=== PATIENT | female | born 1985 | race Caucasian/White ===

== ENCOUNTER 2017-01-23 17:49 | Emergency (ER) | payer BC ==
[2017-01-23 18:42] VITALS: BP 122/69
--- NOTE | 2017-01-23 19:11 | UC ---
Skin Complaint HPI - HPI Summary HPI Summary: Recurrent rash. Diagnosed with poison Siomara and treated with prednisone. Finished it 10 days ago and rash has recurred. - History of Current Complaint Chief Complaint: UCSkin Time Seen by Provider: 01/23/17 19:03 Stated Complaint: RASH ALL OVER Hx Obtained From: Patient Hx Last Menstrual Period: 12/27/16 ?: No Onset/Duration: Sudden Onset, Lasting Weeks - 3, Worse Since - in the last few days. Current Severity: Moderate Location: Discrete - both arms, legs and lower abdomen Aggravating: Nothing Associated Signs & Symptoms: Positive: Rash. Negative: Hoarseness, Throat Tightening, Tenderness, Red Streaks Related History: Possible Reaction to: Environmental Exposure - Poison Siomara Similar Episode/Dx as: Poison Siomara - Allergy/Home Medications Allergies/Adverse Reactions: Allergies Allergy/AdvReac Type Severity Reaction Status Date / Time Sulfa Antibiotics Allergy Unknown Verified 01/23/17 18:42 Reaction Details Home Medications: Home Medications Norethindrone Acet & Eth Estra [Microgestin 05/29 1-20 mg-Mcg] 1 tab PO DAILY [History Confirmed 01/23/17] Review of Systems Skin: Rash Is Patient Immunocompromised?: No All Other Systems Reviewed And Are Negative: Yes PMH/Surg Hx/FS Hx/Imm Hx Previously Healthy: Yes - Surgical History Surgical History: Yes Surgery Procedure, Year, and Place: Uterine surgery, Endometerosis - Family History Known Family History: Negative: Seizure Disorder - Social History Occupation: Employed Part-time Lives: With Family Alcohol Use: Occasionally Substance Use Type: None Smoking Status (MU): Never Smoked Tobacco Physical Exam Triage Information Reviewed: Yes Appearance: Well-Appearing, No Pain Distress, Well-Nourished Vital Signs: Initial Vital Signs Temp 98.2 F 01/23/17 18:37 Pulse 61 01/23/17 18:37 Resp 16 01/23/17 18:37 BP 122/69 01/23/17 18:37 Pulse Ox 100 01/23/17 18:37 Vital Signs Reviewed: Yes Eyes: Positive: Conjunctiva Clear Neck exam: Normal Respiratory Exam: Normal Cardiovascular Exam: Normal Musculoskeletal Exam: Normal Neurological Exam: Normal Neurological: Positive: Fatigued Skin: Positive: rashes - red papular rash with kebnerization on the legs, arms, lower abdomen. Course/Dx - Differential Diagnoses - Skin Complaint Differential Diagnoses: Abscess, Contact Dermatitis, Impetigo, Poison Siomara - Diagnoses Provider Diagnoses: Poison Siomara on legs, arms, abdomen Discharge - Discharge Plan Condition: Stable Disposition: HOME Prescriptions: Betamethasone Dipropionate Aug [Augmented Betamethasone D] 0.05 % .ROUTE BID # 45 oint predniSONE TAB* [Deltasone TAB*] 20 mg PO DAILY #18 tab Patient Education Materials: Poison Siomara (ED), Prednisone (By mouth), Betamethasone Dipropionate, Augmented (On the skin)
[2017-01-23] MEDS ORDERED: predniSONE TAB* 20 MG PO ONE (19:17)
== END 2017-01-23 19:29 | disposition home or self-care (01) ==
LOC: UCCORT 17:49
DX: L23.7 Allergic contact dermatitis due to plants, except food (principal); Z88.2 Allergy status to sulfonamides
CPT/HCPCS: 99202; G0463; J7512

== ENCOUNTER 2017-09-20 14:31 | Emergency (ER) | payer BC ==
[2017-09-20 15:31] VITALS: BP 115/72
[2017-09-20] MEDS ORDERED: Ibuprofen TAB* 400 MG PO ONE (15:35)
--- NOTE | 2017-09-20 15:50 | UC ---
Lower Extremity/Ankle HPI - HPI Summary HPI Summary: pt c/o right ankle pain, swelling and bruising after "rolling ankle" inward 2 days ago. - History of Current Complaint Hx Obtained From: Patient Hx Last Menstrual Period: pt states on OBC continuously, no menses ?: No Onset/Duration: Sudden Onset, Lasting Days, Still Present Severity Initially: Moderate Severity Currently: Mild Pain Intensity: 4 Aggravating Factor(s): Standing, Ambulation Alleviating Factor(s): Rest, Elevation Able to Bear Weight: Yes - Risk Factors Gout Risk Factors: Obesity DVT Risk Factors: Oral Contraceptives <Azalea Zuniga NP - Last Filed: 09/20/17 16:34> <Reina Weston - Last Filed: 09/20/17 16:43> - History of Current Complaint Chief Complaint: UCLowerExtremity Stated Complaint: RT ANKLE COMP Time Seen by Provider: 09/20/17 15:25 - Allergies/Home Medications Allergies/Adverse Reactions: Allergies Allergy/AdvReac Type Severity Reaction Status Date / Time Sulfa (Sulfonamide Allergy Unknown Unknown Verified 09/20/17 15:33 Antibiotics) Reaction Details Home Medications: Home Medications Acyclovir* [Zovirax 200 MG CAP*] 200 mg PO PRN 09/20/17 [History] Norethindrone-E.estradiol-Iron [Junel Fe 24 1-20 mg-Mcg(24)] 1 tab PO DAILY [History Confirmed 09/20/17] PMH/Surg Hx/FS Hx/Imm Hx Previously Healthy: Yes - Surgical History Surgical History: Yes Surgery Procedure, Year, and Place: Uterine surgery, Endometerosis - Family History Known Family History: Positive: Cardiac Disease Negative: Seizure Disorder - Social History Occupation: Employed Full-time Lives: With Family Alcohol Use: Weekly Substance Use Type: None Smoking Status (MU): Never Smoked Tobacco Have You Smoked in the Last Year: No <Azalea Zuniga NP - Last Filed: 09/20/17 16:34> Review of Systems Constitutional: Negative Skin: Bruising Eyes: Negative ENT: Negative Respiratory: Negative Cardiovascular: Negative Gastrointestinal: Negative Genitourinary: Negative Motor: Decreased ROM Neurovascular: Negative Musculoskeletal: Arthralgia, Decreased ROM, Edema, Myalgia Neurological: Negative Psychological: Negative Is Patient Immunocompromised?: No All Other Systems Reviewed And Are Negative: Yes <Azalea Zuniga NP - Last Filed: 09/20/17 16:34> Physical Exam Triage Information Reviewed: Yes Appearance: Well-Appearing Vital Signs: Initial Vital Signs Temp 98.8 F 09/20/17 15:24 Pulse 71 09/20/17 15:24 Resp 14 09/20/17 15:24 BP 115/72 09/20/17 15:24 Pulse Ox 100 09/20/17 15:24 Eye Exam: Normal ENT: Positive: Hearing grossly normal Dental Exam: Normal Neck exam: Normal Respiratory: Positive: No respiratory distress Musculoskeletal Exam: Normal Neurological Exam: Normal Psychological Exam: Normal Skin: Positive: Other - bruising, right ankle <Azalea Zuniga NP - Last Filed: 09/20/17 16:34> Vital Signs: Initial Vital Signs Temp 98.8 F 09/20/17 15:24 Pulse 71 09/20/17 15:24 Resp 09/20/17 15:24 BP 115/72 09/20/17 15:24 Pulse Ox 100 09/20/17 15:24 <Reina Weston - Last Filed: 09/20/17 16:43> Diagnostics - Radiology No standard instances Radiology Interpretation Completed By: Radiologist - IMPRESSION: NEGATIVE EXAMINATION. <Azalea Zuniga NP - Last Filed: 09/20/17 16:34> Lower Extremity Course/Dx - Differential Dx/Diagnosis Differential Diagnosis/HQI/PQRI: Fracture (Closed), Sprain, Strain Provider Diagnoses: right ankle sprain <Azalea Zuniga NP - Last Filed: 09/20/17 16:34> Discharge - Sign-Out/Discharge Documenting (check all that apply): Discharge/Admit/Transfer - Billing Disposition and Condition Condition: STABLE Disposition: HOME <Azalea Zuniga NP - Last Filed: 09/20/17 16:34> - Billing Disposition and Condition Condition: STABLE Disposition: HOME <Reina Weston - Last Filed: 09/20/17 16:43> - Discharge Plan Condition: Stable Disposition: HOME Referrals: No Primary Care Phys,NOPCP [Primary Care Provider] - Attestation Statement User Type: Provider - I was available for consult. This patient was seen by the [facility]. The patient was not presented to, seen by, or examined by me. -Diane <Reina Weston - Last Filed: 09/20/17 16:43>
--- NOTE | 2017-09-20 16:17 | RAD ---
INDICATION: Ankle pain COMPARISON: None TECHNIQUE: AP, lateral, and oblique views were obtained. FINDINGS: The bony structures, joint spaces, and soft tissues are normal for age. IMPRESSION: NEGATIVE EXAMINATION.
== END 2017-09-20 16:53 | disposition home or self-care (01) ==
LOC: UCCORT 14:31
DX: S93.401A Sprain of unspecified ligament of right ankle, initial encounter (principal); X50.9XXA Other and unspecified overexertion or strenuous movements or postures, initial encounter; Y93.9 Activity, unspecified; Y92.9 Unspecified place or not applicable; Z88.2 Allergy status to sulfonamides
CPT/HCPCS: 99213; A9270-GY; G0463

== ENCOUNTER 2018-08-03 07:38 | Emergency (ER) | payer BC ==
--- OUTSIDE RECORDS SUMMARY | 2018-08-03 07:44 | XMS REPORT | Continuity of Care Document ---
:1985 External Reference #:[id number] Author Name CadenMorenita Care Team Providers Name Role Phone Maru Prado MD Primary Care Physician Unavailable Payers Date Identification Numbers Payment Provider Subscriber Effective: 2018 Policy Number: [id number] BS Fep Melissa Nunn Group Name: [id number] [address] PayID: [id number] OmarSHALINI pickett [id number] Advance Directives Description No Information Available Problems Description No Information Family History Description No Information Available Social History Type Date Description Comments Sex Unknown Allergies, Adverse Reactions, Alerts Date Description Reaction Status Severity Comments 07/13/2018 Sulfa Antibiotics Active report dehydration Medications Medication Date Status Form Strength Qnty SIG Indications Ordering Provider Vitamin B Active Tablets 1 by Unknown Complex 00 mouth every day Vitamin D3 Active Tablets Unknown Complete 05/29 Active Tablets 1-20mg-mcg 1 by Unknown 00 mouth every day Fluoxetine HCL Active Capsules 20mg 1 by Unknown 00 mouth every day Fluoxetine HCL Hx Capsules 20mg 1 by Unknown (PMDD) 00 - mouth 07/14/19 every 19 day Immunizations Description No Information Available Vital Signs Date Vital Result Comment 07/13/2018 11:39am Height 64 inches 5'4" Weight 196.50 lb Heart Rate 72 /min BP Systolic 101 mmHg BP Diastolic 71 mmHg Body Temperature 98.4 F O2 % BldC Oximetry 97 % BMI (Body Mass Index) 33.7 kg/m2 Results Description No Information Available Procedures Description No Information Available Encounters Description No Information Available Plan of Treatment 07/13/2018 - Eagle Rollins, [id number] [facility]oringReferral:[facility] ,Diag/[id number] [id number] Encounter for screening for lipoid [id number] Encounter for screening for diabetes mellitus
[2018-08-03 07:50] VITALS: BP 118/69
--- NOTE | 2018-08-03 08:20 | UC ---
Throat Pain/Nasal West HPI - HPI Summary HPI Summary: oNSET YESTERDAY OF SORE THROAT, PAIN WITH SWALLOWING, FEVER TMAX 101, CHILLS, PAZ AND RIGHT EAR PAIN. NO COUGH OR CONGESTION. - History of Current Complaint Chief Complaint: UCGeneralIllness Stated Complaint: SORE THROAT Time Seen by Provider: 08/03/18 07:55 Hx Obtained From: Patient Hx Last Menstrual Period: DOESN'T GET PERIOD - TAKES CONTINUOUS CONTROL Onset/Duration: Gradual Onset, Lasting Hours, Still Present Severity: Moderate Pain Intensity: 7 Pain Scale Used: 0-10 Numeric Cough: None Associated Signs & Symptoms: Positive: Fever - Allergies/Home Medications Allergies/Adverse Reactions: Allergies Allergy/AdvReac Type Severity Reaction Status Date / Time Sulfa (Sulfonamide Allergy Unknown Unknown Verified 08/03/18 07:50 Antibiotics) Reaction Details Home Medications: Home Medications Acetaminophen/Diphenhydramine [Tylenol Pm Ex-Strength Caplet] 1 dose PO BEDTIME PRN 08/03/18 [History Confirmed 08/03/18] FLUoxetine CAP* [Prozac CAP*] 20 mg PO DAILY 08/03/18 [History Confirmed ] PMH/Surg Hx/FS Hx/Imm Hx Previously Healthy: Yes - Surgical History Surgical History: Yes Surgery Procedure, Year, and Place: Uterine surgery, Endometriosis - Family History Known Family History: Positive: Cardiac Disease Negative: Seizure Disorder - Social History Alcohol Use: Occasionally Substance Use Type: None Smoking Status (MU): Former Smoker Have You Smoked in the Last Year: No When Did the Patient Quit Smoking/Using Tobacco: 10 YEARS AGO Review of Systems All Other Systems Reviewed And Are Negative: Yes Constitutional: Positive: Fever, Chills, Fatigue ENT: Positive: Sore Throat, Ear Ache. Negative: Nasal Discharge Respiratory: Positive: Negative Cardiovascular: Positive: Negative Gastrointestinal: Positive: Negative Neurological: Positive: Headache Physical Exam Triage Information Reviewed: Yes Appearance: Well-Appearing, No Pain Distress, Well-Nourished Vital Signs: Initial Vital Signs Temp 98.5 F 08/03/18 07:44 Pulse 93 08/03/18 07:44 Resp 16 08/03/18 07:44 BP 118/69 08/03/18 07:44 Pulse Ox 99 08/03/18 07:44 Laboratory Tests 08/03/18 07:58 Group A Strep Rapid Positive A Vital Signs Reviewed: Yes Eyes: Positive: Conjunctiva Clear ENT: Positive: Hearing grossly normal, Pharyngeal erythema, TMs normal - FLUID BEHIND BILATERAL TMs, Tonsillar swelling, Tonsillar exudate Neck: Positive: Supple, Nontender, No Lymphadenopathy Respiratory Exam: Normal Cardiovascular Exam: Normal Abdomen Description: Positive: Soft Musculoskeletal: Positive: No Edema Neurological: Positive: Alert Psychological: Positive: Age Appropriate Behavior Skin: Negative: Rashes Throat Pain/Nasal Course/Dx - Differential Dx/Diagnosis Provider Diagnosis: Strep pharyngitis Discharge - Sign-Out/Discharge Documenting (check all that apply): Patient Departure All imaging exams completed and their final reports reviewed: No Studies - Discharge Plan Condition: Stable Disposition: HOME Prescriptions: Amoxicillin PO (*) [Amoxicillin 500 MG CAP*] 500 mg PO Q12H #20 cap Patient Education Materials: Strep Throat (ED) Referrals: Eagle Rollins, [employer] [Primary Care Provider] - If Needed Additional Instructions: STREP POSITIVE. TAKE ANTIBIOTICS FOR THE FULL 10 DAYS. OTC CHLORASEPTIC OR CEPACOL LOZENGES AND/OR IBUPROFEN FOR SORE THROAT NEEDED ONCE SYMPTOMS RESOLVED - NEW TOOTHBRUSH DO NOT SHARE FOOD, DRINK, UTENSILS - Billing Disposition and Condition Condition: STABLE Disposition: Home
== END 2018-08-03 08:18 | disposition home or self-care (01) ==
LOC: UCEAST 07:38
DX: J02.0 Streptococcal pharyngitis (principal); H92.01 Otalgia, right ear; Z87.891 Personal history of nicotine dependence; Z88.2 Allergy status to sulfonamides
CPT/HCPCS: 87651; 99212; G0463

== ENCOUNTER 2018-09-05 11:14 | Emergency (ER) | payer BC ==
--- NOTE | 2018-09-05 12:03 | UC ---
Hand/Wrist HPI - HPI Summary HPI Summary: 33 yo female presents with right thumb pain. She tells me that for many years she has been sleeping with a wrist brace because she wakes up with right wrist/ hand pain and numbness. Was told at one time it was carpal tunnel and to improve her symptoms to use a wrist brace at night. The brace does help her. Last night, however, she did not use the wrist brace and this morning has pain in her right thumb. She is right handed. Pain is worse with gripping and twisting - such as opening jars or turning door knobs. She has not taken anything OTC for her discomfort. She does not have any numbness or tingling at this time. - History Of Current Complaint Stated Complaint: RIGHT WRIST INJURY Time Seen by Provider: 09/05/18 12:02 Hx Obtained From: Patient Hx Last Menstrual Period: DOESN'T GET PERIOD - TAKES CONTINUOUS CONTROL Onset/Duration: Sudden Onset Severity Initially: Moderate Severity Currently: Moderate Pain Scale Used: 0-10 Numeric - Allergies/Home Medications Allergies/Adverse Reactions: Allergies Allergy/AdvReac Type Severity Reaction Status Date / Time Sulfa (Sulfonamide Allergy Unknown Unknown Verified 09/05/18 12:14 Antibiotics) Reaction Details PMH/Surg Hx/FS Hx/Imm Hx Psychological History: Anxiety, Depression - Surgical History Surgical History: Yes Surgery Procedure, Year, and Place: Uterine surgery, Endometriosis - Family History Known Family History: Positive: Cardiac Disease Negative: Seizure Disorder - Social History Occupation: Employed Full-time Lives: With Family Alcohol Use: Occasionally Substance Use Type: None Smoking Status (MU): Former Smoker Have You Smoked in the Last Year: No When Did the Patient Quit Smoking/Using Tobacco: 10 YEARS AGO Review of Systems All Other Systems Reviewed And Are Negative: Yes Constitutional: Positive: Negative Skin: Positive: Negative Respiratory: Positive: Negative Cardiovascular: Positive: Negative Musculoskeletal: Positive: Other: - Right thumb pain Neurological: Positive: Negative Psychological: Positive: Negative Physical Exam - Summary Physical Exam Summary: GENERAL: NAD. WDWN. No pain distress. SKIN: No rashes, sores, lesions, or open wounds. CHEST: No accessory muscle use. Breathing comfortably and in no distress. CV: Pulses intact radial and ulnar. Cap refill <2seconds MSK: RIGHT THUMB: Mild TTP at extensor tendons. Positive tinel sign. Positive phalen test. Strength 5/5 including molasses and caramel operator strength. No edema or obvious bony deformities. No snuffbox tenderness. NEURO: Alert. Sensations intact hand and all fingers. PSYCH: Age appropriate behavior. Triage Information Reviewed: Yes Vital Signs: Vital Signs: Temp Pulse Resp BP Pulse Ox 98.6 F 63 16 109/62 100 09/05/18 12:16 09/05/18 12:16 09/05/18 12:16 09/05/18 12:16 09/05/18 12:16 Vital Signs Reviewed: Yes Hand/Wrist Course/Dx - Course Course Of Treatment: Suspect thumb strain/sprain with underlying carpal tunnel syndrome. She was placed in a thumb spica splint and will refer to Orthopedics for further evaluation. - Differential Dx/Diagnosis Provider Diagnosis: Thumb sprain, Carpal tunnel syndrome Discharge - Sign-Out/Discharge Documenting (check all that apply): Patient Departure All imaging exams completed and their final reports reviewed: No Studies - Discharge Plan Condition: Stable Disposition: HOME Patient Education Materials: Skier's Thumb (ED), Paresthesia (ED) Referrals: Eagle Rollins NP [Primary Care Provider] - Sourav Bullock MD [Medical Doctor] - As Soon As Possible Additional Instructions: If you develop a fever, shortness of breath, chest pain, new or worsening symptoms - please call your PCP or go to the ED immediately. 1) Use the thumb brace/splint as much as possible to reduce discomfort 2) Please call Orthopedics at the number below to schedule an appointment regarding your hand pain and numbness - Billing Disposition and Condition Condition: STABLE Disposition: Home - Attestation Statements Provider Attestation: I was available for consult. This patient was seen by the [facility]. The patient was not presented to, seen by, or examined by me. -Diane
[2018-09-05 12:21] VITALS: BP 109/62
== END 2018-09-05 12:27 | disposition home or self-care (01) ==
LOC: UCCORT 11:14
DX: S63.601A Unspecified sprain of right thumb, initial encounter (principal); G56.01 Carpal tunnel syndrome, right upper limb; Z87.891 Personal history of nicotine dependence; Z88.2 Allergy status to sulfonamides; X58.XXXA Exposure to other specified factors, initial encounter; Y92.9 Unspecified place or not applicable
CPT/HCPCS: 99212; G0463

== ENCOUNTER 2018-09-08 21:09 | Emergency (ER) | payer BC ==
[2018-09-08 21:26] VITALS: BP 119/67
--- NOTE | 2018-09-08 21:31 | UC ---
Lower Extremity/Ankle HPI - HPI Summary HPI Summary: Pt with left ankle pain s/p inversion injury last night. Pt states pain worse with weightbear. no paresthesia. + edema + applied ice. has taken motrin. No open wounds. No knee pain. No other injuries meds reviewed not - History of Current Complaint Chief Complaint: UCLowerExtremity Stated Complaint: LT ANKLE COMPLAINT Time Seen by Provider: 09/08/18 21:30 Hx Obtained From: Patient Hx Last Menstrual Period: BCP continuously no periods ?: No Onset/Duration: Sudden Onset, Lasting Days - 1 Pain Intensity: 2 - Allergies/Home Medications Allergies/Adverse Reactions: Allergies Allergy/AdvReac Type Severity Reaction Status Date / Time Sulfa (Sulfonamide Allergy Unknown Unknown Verified 09/08/18 21:21 Antibiotics) Reaction Details Home Medications: Home Medications Naproxen Sodium [Aleve] 220 mg PO ONCE PRN 09/08/18 [History Confirmed 09/08/18] PMH/Surg Hx/FS Hx/Imm Hx Previously Healthy: Yes - Surgical History Surgical History: Yes Surgery Procedure, Year, and Place: Uterine surgery, Endometriosis - Family History Known Family History: Positive: Cardiac Disease, Non-Contributory Negative: Seizure Disorder - Social History Occupation: Employed Full-time Alcohol Use: Occasionally Substance Use Type: None Smoking Status (MU): Former Smoker Have You Smoked in the Last Year: No When Did the Patient Quit Smoking/Using Tobacco: 10 YEARS AGO Review of Systems All Other Systems Reviewed And Are Negative: Yes Constitutional: Positive: Negative Skin: Positive: Negative Musculoskeletal: Positive: Other: - left ankle Physical Exam - Summary Physical Exam Summary: Vital Signs Reviewed: Yes A+Ox3, no distress Eyes: Conjunctiva Clear ENT: Hearing grossly normal neck: supple Respiratory: Positive: No respiratory distress, No accessory muscle use Cardiovascular: skin color reflect adequate perfusion 2+ DP, PT CBT <2 sec Musculoskeletal Exam: + SLE + flex/ext knee, ankle with pain lateral malleolus of left + TTP left malleolus, talus no achilles pain, no tarsal pain, mild prox lateral tibia pain Neurological: Positive: Alert, favoring left foot Psychological: Positive: Normal Response Skin: Positive: no rash, no ecchymosis, mild edema leteral malleolus, no open wounds, Triage Information Reviewed: Yes Vital Signs: Initial Vital Signs Temp 97.8 F 09/08/18 21:22 Pulse 62 09/08/18 21:22 Resp 16 09/08/18 21:22 BP 119/67 09/08/18 21:22 Pulse Ox 100 09/08/18 21:22 Diagnostics - Radiology No standard instances Radiology Interpretation Completed By: ED Physician - neg ankle, neg tib/fib Lower Extremity Course/Dx - Course Course Of Treatment: inversion injury to left ankle yesterday. pain with walking, standing. + edema lateral malleolus with TTP pt also with mild prox tib pain will image- aware wet read ice motrin/apap f/u with ortho/sports med crutches kina elevate pt in agreement with plan - Differential Dx/Diagnosis Provider Diagnosis: Left ankle sprain Discharge - Sign-Out/Discharge Documenting (check all that apply): Patient Departure All imaging exams completed and their final reports reviewed: No - Discharge Plan Condition: Stable Disposition: HOME Patient Education Materials: Ankle Sprain (ED) Referrals: Eagle Rollins NP [Primary Care Provider] - Sam Dao MD [Medical Doctor] - [facility] [Provider Group] Additional Instructions: -wear kina wrap for comfort and support -apply ice (20 min at a time) every 2-3 hours for the next 2 days -use crutches until you can walk normally without a limp -Elevate your leg - this will help with swelling and pain - Alternate ibuprofen (advil, Motrin) 600mg and tylenol every 3 hours for pain. Take with food. Do NOT take for more than 4-5 days -If you have persistent pain with walking, it is recommended you schedule a follow-up with the orthopedic provider or the sports medicine doctor As discussed, your radiograph was reviewed by the provider that treated you tonight. It will be read by a radiologist tomorrow morning. If there is a finding other than that discussed with you today, you will receive a call from a care provider. - Billing Disposition and Condition Condition: STABLE Disposition: Home
== END 2018-09-08 22:14 | disposition home or self-care (01) ==
LOC: UCCORT 21:09
DX: S93.402A Sprain of unspecified ligament of left ankle, initial encounter (principal); X50.1XXA Overexertion from prolonged static or awkward postures, initial encounter; Y93.9 Activity, unspecified; Y92.9 Unspecified place or not applicable; Z88.2 Allergy status to sulfonamides; Z87.891 Personal history of nicotine dependence
CPT/HCPCS: 99213; G0463

== ENCOUNTER 2018-09-19 07:19 | Emergency (ER) | payer BC ==
--- OUTSIDE RECORDS SUMMARY | 2018-09-19 07:26 | XMS REPORT | Continuity of Care Document ---
:1985 External Reference #:[id number] Author Name Dimas Nicholsnavi Care Team Providers Name Role Phone Maru Prado MD Primary Care Physician Unavailable Payers Date Identification Numbers Payment Provider Subscriber Effective: 2018 Policy Number: [id number] [facility] Group Name: [address] [address] PayID: [id number] SHALINI Nelson [id number] Advance Directives Description No Information Available Problems Description No Information Family History Date Family Member(s) Observation Comments General Diabetes Father Diabetes Mother Hypercholesterolemia Siblings 2 Social History Type Date Description Comments Sex Unknown Marital Status Lives With Occupation Marketing Production Manager ETOH Use Currently consumes 3-4 drinks/week alcohol Tobacco Use Start: Unknown End: Patient is a former 1 ppd from age [age] Unknown smoker Smoking Status Reviewed: 09/13/18 Patient is a former 1 ppd from age [age] smoker Exercise Type/Frequency Exercises regularly Allergies, Adverse Reactions, Alerts Active Allergies Reaction Severity Comments Date Sulfa Antibiotics report dehydration 07/13/2018 Medications Active Medications SIG Qnty Indications Ordering Provider Date Vitamin B Complex 1 by mouth every Unknown Tablets day Vitamin D3 Complete Unknown Tablets June05/29 1 by mouth every Unknown 1-20mg-mcg day Tablets Fluoxetine HCL 1 by mouth every Unknown 20mg day Capsules Acyclovir 1 by mouth five Unknown 200mg Capsules times a day History Medications Fluoxetine HCL (PMDD) 1 by mouth every day Unknown - 2018 20mg Capsules Immunizations Description No Information Available Vital Signs Date Vital Result Comment 09/13/2018 3:25pm Height 63 inches 5'3" Weight 190.00 lb Heart Rate 64 /min BP Systolic 120 mmHg BP Diastolic 82 mmHg Respiratory Rate 12 /min Pain Level 3 BMI (Body Mass Index) 33.7 kg/m2 07/13/2018 11:39am Height 64 inches 5'4" Weight 196.50 lb Heart Rate 72 /min BP Systolic 101 mmHg BP Diastolic 71 mmHg Body Temperature 98.4 F O2 % BldC Oximetry 97 % BMI (Body Mass Index) 33.7 kg/m2 Results Test Date Facility Test Result H/L Range Note Laboratory test 08/04/19 [facility] Rapid Strep POSITIVE Abnormal Negative 1 finding [address] [place] [address] [phone] Lipid Profile 07/16/19 [facility] Triglycerides 136 mg/dL 2 (Trig/Chol/HDL) [address] [place] [address] [phone] Cholesterol 161 mg/dL 3 HDL Cholesterol 55.8 mg/dL 4 LDL Cholesterol 78 mg/dL 5 Comp Metabolic Panel 07/15/2018 [facility] Sodium 137 mmol/L N 135-[address] [place] [address] [phone] Potassium 4.4 mmol/L N 3.5-5.0 Chloride 105 mmol/L N 101-111 Co2 Carbon Dioxide 25 mmol/L N 22-32 Anion Gap 7 mmol/L N 2-11 Glucose 96 mg/dL N 70-100 Blood Urea Nitrogen 11 mg/dL N 6-24 Creatinine 0.87 mg/dL N 0.51-0.95 BUN/Creatinine Ratio 12.6 N 8-20 Calcium 9.3 mg/dL N 8.6-10.3 Total Protein 6.5 g/dL N 6.4-8.9 Albumin 4.1 g/dL N 3.2-5.2 Globulin 2.4 g/dL N 2-4 Albumin/Globulin Ratio 1.7 N 1-3 Total Bilirubin 0.70 mg/dL N 0.2-1.0 Alkaline Phosphatase 44 U/L N 34-104 Alt 20 U/L N 7-52 Ast 21 U/L N 13-39 Egfr Non- 74.5 >60 Egfr 90.2 >60 6 Laboratory test 07/15/2018 [facility] TSH (Thyroid 1.12 mcIU/mL N 0.34-5.60 [address] Stim Horm) [place] [address] [phone] CBC Auto Diff 07/15/2018 [facility] White Blood 4.5 10^3/uL N 3.5-10.[address] [place] [address] [phone] Red Blood Count 4.11 10^6/uL N 4.00-5.40 Hemoglobin 13.2 g/dL N 12.0-16.0 Hematocrit 40 % N 35-47 Mean Corpuscular Volume 96 fL N 80-97 Mean Corpuscular Hemoglobin 32 pg High 27-31 Mean Corpuscular HGB Conc 34 g/dL N 31-36 Red Cell Distribution Width 12 % N 10.5-15 Platelet Count 279 10^3/uL N 150-450 Mean Platelet Volume 7.7 fL N 7.4-10.4 Abs Neutrophils 2.6 10^3/uL N 1.5-7.7 Abs Lymphocytes 1.2 10^3/uL N 1.0-4.8 Abs Monocytes 0.3 10^3/uL N 0-0.8 Abs Eosinophils 0.2 10^3/uL N 0-0.6 Abs Basophils 0 10^3/uL N 0-0.2 Abs Nucleated RBC 0 10^3/uL Granulocyte % 58.6 % Lymphocyte % 27.9 % Monocyte % 7.6 % Eosinophil % 5.3 % Basophil % 0.6 % Nucleated Red Blood Cells % 0 1 Business Solutions Analyst: [id number] Desirable: <150 Borderline High: 150-199 High: 200-499 Very High: >500 3 Desirable: <200 Borderline High: 200-239 High: >239 4 Low: <40 Desirable: 40-60 High: >60 5 Desirable: <100 Near Optimal: 100-129 Borderline High: 130-159 High: 160-189 Very High: >189 6 Because ethnic data is not always readily available, this report includes an eGFR for both -Americans and non- Americans. The National Kidney Disease Education Program (NKDEP) does not endorse the use of the MDRD equation for patients that are not between the ages of 18 and 70, are , have extremes of body size, muscle mass, or nutritional status, or are non- or non-. According to the National Kidney Foundation, irrespective of diagnosis, the stage of the disease is based on the level of kidney function: Stage Description GFR(mL/min/1.73 m(2)) 1 Kidney damage with normal or decreased GFR 90 2 Kidney damage with mild decrease in GFR 60-89 3 Moderate decrease in GFR 30-59 4 Severe decrease in GFR 15-29 5 Kidney failure <15 (or dialysis) 7 FASTING 10 HOUR Procedures Description No Information Available Encounters Type Date Location Provider Dx Diagnosis Office Visit 07/13/2018 11:00a [facility] Internal Medicine Eagle Rollins NP R06.83 Snoring R40.0 Somnolence Z13.220 Encounter for screening for lipoid disorders Z13.1 Encounter for screening for diabetes mellitus Plan of Treatment Future Appointment(s):09/21/2018 7:30 am - Tawny Abdullahi MD at [facility]09/13/2018 - Sourav Bullock MDG56.01 Carpal tunnel syndrome, right upper limbFollow up:Follow up: As needed
[2018-09-19 07:30] VITALS: BP 103/62
--- NOTE | 2018-09-19 07:56 | UC ---
Throat Pain/Nasal West HPI - HPI Summary HPI Summary: Pt presents to with sinus congestion x 2 days, non productive cough, and sore throat since yesterday. Patient's been eating popsicles water. Patient reports painful swallowing but no difficulty swallowing. Patient had a fever last night that she took Nyquil. No antipyretic today. Pt with strep approx 6 weeks ago. Medications reviewed not - History of Current Complaint Chief Complaint: UCGeneralIllness Stated Complaint: SORE THROAT FEVER CHILLS Time Seen by Provider: 09/19/18 07:56 Hx Obtained From: Patient Hx Last Menstrual Period: BCP continuously no periods ?: No Onset/Duration: Gradual Onset Severity: Moderate Pain Intensity: 8 Pain Scale Used: 0-10 Numeric Cough: Nonproductive Associated Signs & Symptoms: Positive: Sinus Discomfort, Nasal Discharge, Fever - Allergies/Home Medications Allergies/Adverse Reactions: Allergies Allergy/AdvReac Type Severity Reaction Status Date / Time Sulfa (Sulfonamide Allergy Unknown Unknown Verified 09/19/18 07:30 Antibiotics) Reaction Details PMH/Surg Hx/FS Hx/Imm Hx Previously Healthy: Yes - Surgical History Surgical History: Yes Surgery Procedure, Year, and Place: Uterine surgery, Endometriosis - Family History Known Family History: Positive: Cardiac Disease, Non-Contributory Negative: Seizure Disorder - Social History Occupation: Employed Full-time Lives: With Family Alcohol Use: Occasionally Substance Use Type: None Smoking Status (MU): Former Smoker Have You Smoked in the Last Year: No When Did the Patient Quit Smoking/Using Tobacco: 10 YEARS AGO Review of Systems All Other Systems Reviewed And Are Negative: Yes Constitutional: Positive: Fever Skin: Positive: Negative ENT: Positive: Sore Throat Is Patient Immunocompromised?: No Physical Exam - Summary Physical Exam Summary: Vital Signs Reviewed: Yes A+Ox3, no distress Eyes: Conjunctiva Clear, NORBERTO. EOM intact and full ENT: Hearing grossly normal TM x 2 clear, turbinates inflammed, + PND, mmoist, uvula midline, no exudate, + diffuse erythema oropharynx Neck: Positive: Supple, + submandibular LA Respiratory: Positive: No respiratory distress, No accessory muscle use + CTA throughout no w/r Cardiovascular: RRR nl s1, s2 no m/r CBT <2 sec abd soft + BS nt/nd no guarding, no distension Musculoskeletal Exam: MAXWELL x 4 without difficulty Strength Intact, ROM Intact Neurological: Positive: Alert, + sensation throughout Psychological: Positive: Normal Response To Family Skin: Positive: no rash, no ecchymosis Triage Information Reviewed: Yes Vital Signs: Initial Vital Signs Temp 99.0 F 09/19/18 07:25 Pulse 94 09/19/18 07:25 Resp 18 09/19/18 07:25 BP 103/62 09/19/18 07:25 Pulse Ox 98 09/19/18 07:25 Throat Pain/Nasal Course/Dx - Course Course Of Treatment: Pt with progressive sore throat, fever last night, sinus congestion VSS Pt with with erythema, no exudate uvula midline Strep positive Amox hydrate secretion precaution gargle/spit return precautions - Differential Dx/Diagnosis Provider Diagnosis: Strep pharyngitis Discharge - Sign-Out/Discharge Documenting (check all that apply): Patient Departure All imaging exams completed and their final reports reviewed: No Studies - Discharge Plan Condition: Stable Disposition: HOME Prescriptions: Amoxicillin PO (*) [Amoxicillin 500 MG CAP*] 500 mg PO Q12H #20 cap Patient Education Materials: Strep Throat (ED) Referrals: Eagle Rollins, ACCOUNT MANAGER EMPLOYEE [employer]EFITS [Primary Care Provider] - Additional Instructions: - Okay to alternate ibuprofen (Advil, Motrin) 600mg and Tylenol 1000mg every 3 hours for pain. Take with food. Do NOT take for more than 4-5 days - Okay to gargle and spit warm salt water every 4 hours as needed for pain - Stay well hydrated - frequent sips of cold fluids will be soothing to your throat (popsicles, jello, ice cream, ice water). Avoid excess caffeine until your symptoms have resolved. -Throat infections are spread by oral secretions - do not share eating or drinking utensils until you symptoms are resolved. Clean items that may get your secretions such as cell phones, ipads, computer mouse, television remotes. Once you have been on antibiotics for 2 days, start to feel better, change your toothbrush and your pillowcase. - humidify the air in the room where you sleep - boil water, run a hot steam shower, vaporizer, cups of water by heat register - Okay to take over the counter cough and decongestant medication - Contact your doctor to arrange a follow-up appointment as needed - Billing Disposition and Condition Condition: STABLE Disposition: Home
== END 2018-09-19 08:15 | disposition home or self-care (01) ==
LOC: UCEAST 07:19
DX: J02.0 Streptococcal pharyngitis (principal); Z88.2 Allergy status to sulfonamides; Z87.891 Personal history of nicotine dependence
CPT/HCPCS: 87651; 99212; G0463

== ENCOUNTER 2018-10-11 15:28 | Emergency (ER) | payer BC ==
--- OUTSIDE RECORDS SUMMARY | 2018-10-11 15:39 | XMS REPORT | Continuity of Care Document ---
:1985 External Reference #:[id number] Author Name FangToña holbrook Care Team Providers Name Role Phone Eagle Rollins NP Primary Care Physician Unavailable Payers Date Identification Numbers Payment Provider Subscriber Effective: 2018 Policy Number: [id number] [facility]unn Group Name: [address] [address] PayID: [id number] SHALINI Nelson [id number] Family History Date Family Member(s) Observation Comments General Diabetes General Pulmonary fibrosis Mother was recently diagnosed General Sleep Apnea Father Diabetes Mother Hypercholesterolemia Siblings 2 Social History Type Date Description Comments Sex Unknown Marital Status 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 ETOH Use Currently consumes 3-4 drinks/week alcohol Tobacco Use Start: Unknown End: Patient is a former 1 ppd from age Unknown smoker [age] Recreational Drug Use Never Used Drugs Smoking Status Reviewed: 09/21/18 Patient is a former 1 ppd from age smoker [age] Exercise Type/Frequency Exercises regularly Allergies, Adverse Reactions, Alerts Active Allergies Reaction Severity Comments Date Sulfa Antibiotics report dehydration 07/13/2018 Medications Active Medications SIG Qnty Indications Ordering Provider Date Vitamin B Complex 1 by mouth every Unknown Tablets day Vitamin D3 Complete Unknown Tablets Junel 05/29 1 by mouth every Unknown 1-20mg-mcg day Tablets Fluoxetine HCL 1 by mouth every Unknown 20mg day Capsules Acyclovir 1 by mouth five Unknown 200mg Capsules times a day History Medications Fluoxetine HCL (PMDD) 1 by mouth every day Unknown - 2018 20mg Capsules Vital Signs Date Vital Result Comment 09/21/2018 7:08am Height 63 inches 5'3" Weight 190.50 lb Heart Rate 80 /min BP Systolic Sitting 116 mmHg Lue regular cuff BP Diastolic Sitting 78 mmHg Lue regular cuff Respiratory Rate 12 /min O2 % BldC Oximetry 98 % BMI (Body Mass Index) 33.7 kg/m2 Neck Circumference in inches 14.25 09/13/2018 3:25pm Height 63 inches 5'3" Weight [...] Test Result H/L Range Note Laboratory test 09/20/19 [facility] Rapid Strep POSITIVE Abnormal Negative 1 finding 19 [place] [address] [phone] Laboratory test 08/04/19 [facility] Rapid Strep POSITIVE Abnormal Negative 2 finding [address] [place] [address] [phone] Lipid Profile 07/16/19 [facility] Triglycerides 136 mg/dL 3 (Trig/Chol/HDL) [address] [place] [address] [phone] Cholesterol 161 mg/dL 4 HDL Cholesterol 55.8 mg/dL 5 LDL Cholesterol 78 mg/dL 6 Comp Metabolic Panel 07/15/2018 [facility] Sodium 137 mmol/L N 135-145 [address] [place] [address] [phone] Potassium 4.4 mmol/L N 3.5-5.0 Chloride 105 [...] Egfr Non- 74.5 >60 Egfr 90.2 >60 7 Laboratory test 07/15/2018 [facility] TSH (Thyroid 1.12 mcIU/mL N 0.34-5.60 [address] Stim Horm) [place] [address] [phone] CBC Auto Diff 07/15/2018 [facility] White Blood 4.5 10^3/uL N 3.5-10.[address] [place] [address] [phone] Red Blood Count 4.11 10^6/uL N 4.00-5.40 [...] Nucleated Red Blood Cells % 0 1 Water Pump Installer: [id number] 2 Water Pump Installer: [id number] 3 Desirable: <150 Borderline High: 150-199 High: 200-499 Very High: >500 4 Desirable: <200 Borderline High: 200-239 High: >239 5 Low: <40 Desirable: 40-60 High: >60 6 Desirable: <100 Near Optimal: 100-129 Borderline High: 130-159 High: 160-189 Very High: >189 7 Because ethnic data is not always readily [...] 15-29 5 Kidney failure <15 (or dialysis) 8 FASTING 10 HOUR Encounters Type Date Location Provider Dx Diagnosis Office Visit 09/21/2018 [facility] Tawny Abdullahi MD R05 Cough 7:30a [facility] R06.83 Snoring R06.02 Shortness of breath Office Visit 07/13/2018 11:00a [facility] Internal Medicine Eagle Rollins NP R06.83 Snoring R40.0 Somnolence Z13.220 Encounter for screening for lipoid disorders Z13.1 Encounter for screening for diabetes mellitus Plan of Treatment Future Appointment(s):11/22/2018 3:30 pm - Tawny Abdullahi MD at [facility]09/21/2018 - ARAM Stewart CoughNew Xrays: Chest PA & Lat 2 VWS, Ordered: 09/21/18New Orders:Methacholine Challenge, Ordered: 09/21/18PFTW/Spirometry Vol Pre/Post Bronchdilat Dlco Complete, Ordered : 09/21/18Follow up:3 cexbuU47.83 SnoringNew Orders:Home Sleep Testing, Ordered : 09/21/18R06.02 Shortness of breath
[2018-10-11 15:56] VITALS: BP 117/72
--- NOTE | 2018-10-11 16:46 | UC ---
Throat Pain/Nasal West HPI - HPI Summary HPI Summary: sore throat x 1 days has had strep twice since August no high fever or vomiting - History of Current Complaint Chief Complaint: UCRespiratory Stated Complaint: SORE THROAT Time Seen by Provider: 10/11/18 16:36 Hx Obtained From: Patient Hx Last Menstrual Period: unknown Onset/Duration: Gradual Onset, Lasting Days Severity: Moderate Pain Intensity: 7 Pain Scale Used: 0-10 Numeric Cough: None - Epiglottits Risk Factors Epiglottis Risk Factors: Negative - Allergies/Home Medications Allergies/Adverse Reactions: Allergies Allergy/AdvReac Type Severity Reaction Status Date / Time Sulfa (Sulfonamide Allergy Unknown Unknown Verified 10/11/18 15:56 Antibiotics) Reaction Details Home Medications: Home Medications Acetaminophen [Tylenol] 1,000 mg PO Q6HR PRN 10/11/18 [History Confirmed ] Fluticasone NASAL SPRAY 50MCG* [Flonase NASAL SPRAY 50MCG*] 1 spray INH Q6HR 08/26 [History Confirmed 10/11/18] PMH/Surg Hx/FS Hx/Imm Hx Previously Healthy: Yes Psychological History: Anxiety, Depression - Surgical History Surgical History: Yes Surgery Procedure, Year, and Place: Uterine surgery, Endometriosis - Family History Known Family History: Positive: Cardiac Disease, Non-Contributory Negative: Hypertension, Diabetes, Seizure Disorder - Social History Alcohol Use: Occasionally Substance Use Type: None Smoking Status (MU): Former Smoker Have You Smoked in the Last Year: No When Did the Patient Quit Smoking/Using Tobacco: 10 YEARS AGO Review of Systems All Other Systems Reviewed And Are Negative: Yes Constitutional: Positive: Negative Skin: Positive: Negative Eyes: Positive: Negative ENT: Positive: Sore Throat Respiratory: Positive: Negative Cardiovascular: Positive: Negative Gastrointestinal: Positive: Negative Genitourinary: Positive: Negative Motor: Positive: Negative Neurovascular: Positive: Negative Musculoskeletal: Positive: Negative Neurological: Positive: Negative Psychological: Positive: Negative Physical Exam Triage Information Reviewed: Yes Appearance: Well-Appearing, No Pain Distress, Well-Nourished Vital Signs: Initial Vital Signs Temp 99.8 F 10/11/18 15:52 Pulse 74 10/11/18 15:52 Resp 12 10/11/18 15:52 BP 117/72 10/11/18 15:52 Pulse Ox 99 10/11/18 15:52 Vital Signs Reviewed: Yes Eyes: Positive: Conjunctiva Clear ENT: Positive: Pharyngeal erythema, TMs normal, Tonsillar swelling, Uvula midline. Negative: Pharynx normal, Nasal congestion, Nasal drainage, Tonsillar exudate, Trismus, Muffled voice, Hoarse voice Dental Exam: Normal Neck: Positive: Supple, Nontender, Enlarged Nodes @ - ant cerrv Respiratory: Positive: Lungs clear, Normal breath sounds, No respiratory distress, No accessory muscle use Cardiovascular: Positive: RRR, No Murmur Musculoskeletal: Positive: ROM Intact, No Edema Neurological: Positive: Alert Psychological Exam: Normal Skin Exam: Normal Diagnostics - Laboratory Lab Results: strep (+) Throat Pain/Nasal Course/Dx - Differential Dx/Diagnosis Provider Diagnosis: Strep throat Discharge - Sign-Out/Discharge Documenting (check all that apply): Patient Departure All imaging exams completed and their final reports reviewed: No Studies - Discharge Plan Condition: Stable Disposition: HOME Prescriptions: Cephalexin CAP* [Keflex CAP*] 500 mg PO BID #20 cap Patient Education Materials: Strep Throat (ED) Referrals: Eagle Rollins NP [Primary Care Provider] - 2 Weeks Additional Instructions: recheck in 3-4 days if not better - Billing Disposition and Condition Condition: STABLE Disposition: Home
== END 2018-10-11 16:52 | disposition home or self-care (01) ==
LOC: UCEAST 15:28
DX: J02.0 Streptococcal pharyngitis (principal); Z88.2 Allergy status to sulfonamides; Z87.891 Personal history of nicotine dependence
CPT/HCPCS: 87651; 99212; G0463

== ENCOUNTER 2019-04-03 07:01 | Day surgery (SDC) | payer BC ==
[~2019-04-03 07:01] MED LIST: Buffered Lidocaine 1% SYRIN* 1 ML/SYRINGE INTRADERM ONE; Dexamethasone IV* 4 MG/ML 1 ML (4 MG) IV SLOW PU ONE; Famotidine IV* 10 MG/ML 2 ML (20 mg) IV ONE; Lactated Ringers 1000 ML Bag* 1,000 ML IV SCH
[2019-04-03] MEDS ORDERED: Famotidine IV* 10 MG/ML 2 ML (20 mg) ONE (07:40)
[2019-04-03] MEDS ORDERED: Buffered Lidocaine 1% SYRIN* 1 ML/SYRINGE INTRADERM ONE (07:40)
[2019-04-03] MEDS ORDERED: ceFAZolin 2 GM in NS PREMIX(*) 2 GM/100 ML BAG IVPB ONE (07:40)
[2019-04-03] MEDS ORDERED: Dexamethasone IV* 4 MG/ML 1 ML (4 MG) ONE (07:41)
[2019-04-03] MEDS ORDERED: fentaNYL* 50 MCG/ML 2 ML VIAL (100 MCG VIAL) ONE (09:23)
[2019-04-03] MEDS ORDERED: Lidocaine 2% PF * 5 ML VIAL ONE (09:23)
[2019-04-03] MEDS ORDERED: Midazolam* 1 MG/ML 5 ML VIAL (5 MG) ONE (09:23)
[2019-04-03] MEDS ORDERED: Propofol* 10 MG/ML 20 ML BTL ONE (09:23)
[2019-04-03] MEDS ORDERED: Naloxone* 0.4 MG/ML 1 ML VIAL IV PRN (09:30)
[2019-04-03] MEDS ORDERED: HYDROcodone/ACETAMIN 5-325 MG* 1 TAB PO PRN (09:30)
[2019-04-03] MEDS ORDERED: DiMENhydriNATE IV* 50 MG/ML VIAL IV PUSH PRN (09:30)
[2019-04-03] MEDS ORDERED: fentaNYL* 50 MCG/ML 2 ML VIAL (100 MCG VIAL) IV PRN (09:30)
[2019-04-03] MEDS ORDERED: oxyCODONE/Acetamin 5/325 MG* TAB PO PRN (09:30)
[2019-04-03] MEDS ORDERED: Bupivacaine 0.25% SDV PF* 10 ML VIAL INJ ONE ×2 (09:41→10:48)
[2019-04-03] MEDS ORDERED: Ketorolac INJ* 30 MG/ML 1 ML VIAL ONE (09:43)
[2019-04-03] MEDS ORDERED: Ondansetron INJ* 2 MG/ML VIAL ONE (10:13)
[2019-04-03] MEDS ORDERED: EPHEDrine (Pressors)* 50 MG/ML VIAL ONE (10:22)
[2019-04-03] MEDS ORDERED: oxyCODONE/Acetamin 5/325 MG* TAB ONE (11:56)
[2019-04-03 12:46] VITALS: BP 112/68
--- NOTE | 2019-04-03 13:43 | OP ---
OPERATIVE REPORT: DATE OF OPERATION: 04/03/19 DATE OF : 81 SURGEON: Sourav Bullock MD MUSEUM EDUCATOR: NEFTALI Irby An digital sales assistant was needed for the procedure to aid in position of the arm in retraction. ANESTHESIOLOGIST: Dr. Qureshi PRE-OP DIAGNOSES: 1. Right dorsal ring finger ganglion cyst. 2. Right hand carpal tunnel syndrome. 3. Right cubital tunnel syndrome. POS-OP DIAGNOSES: 1. Right dorsal ring finger ganglion cyst. 2. Right hand carpal tunnel syndrome. 3. Right cubital tunnel syndrome. OPERATIVE PROCEDURE: 1. Excision of right dorsal proximal interphalangeal joint ganglion cyst, serpentine ganglion cyst. 2. Right endoscopic carpal tunnel release. 3. Right in situ cubital tunnel release. INDICATIONS: Ms. Nunn is 33 years old. She has the above-mentioned conditions. We talked about risk s and benefits. She wanted to proceed with surgery. ESTIMATED BLOOD LOSS: 5 mL. COMPLICATIONS: None. FINDINGS: See above and below. DESCRIPTION OF PROCEDURE: Ms. Nunn was seen in the preoperative holding area. The correct site, pepe e, and procedures were identified. We came back to the operating room, the arm was prepped and drape d in the usual fashion. A time-out was performed. The arm was exsanguinated with the Esmarch and the tourniquet was inflated to 250 mmHg. I first made a curvilinear incision over the dorsum of the right ring finger PIP joint. Full-thickness flap was raised off the cyst and marginal excision was performed with a Harney blade. This was taken down and looked like it might be emanating from the edge of the tendon sheath on the palmar ulnar aspect. On ce I completely released the tendon, I cauterized the area with the Bovie to try to prevent any cyst recurrence. Once I had cauterized the area, irrigated out the wound. Skin was closed with 4-0 sutur e. I then made a 1 cm incision just ulnar to the palmar longus tendon. Dissection was carried down and the distal antebrachial fascia was split transversely with the tenotomy scissors. A 2-prong skin ginger k was placed. The synovial stripper followed by the dilators were used to dilate out the carpal tunn el. The [employer] Endoscopic Carpal Tunnel System was introduced. The ligament was released from di stal to proximal under direct visualization. Once I completed the release distally and confirmed, I released the distal antebrachial fascia with the tenotomy scissors. The wound was irrigated out and closed with a 4-0 Prolene suture and Steri-Strip. I then made a curvilinear incision over the posteromedial elbow. Dissection was carried down through the subcutaneous tissue. The Berger's ligament was released, I then released the superficial FCU f ascia. The 2 ends of the FCU were split. The subfascial layer was released. The fascia proximally was released all the way out past the arcade of [place]. Bipolar was used to obtain hemostasis. O nce I had completely released the nerve and confirmed this and everything was looking good, I checked for instability, there was no instability. After hemostasis was confirmed, I irrigated out the woun d, subcutaneous tissue was reapproximated with 3-0 Vicryl. Skin was closed with 3-0 Monocryl and Ster i-Strips. 0.25% Marcaine was infiltrated around all of the operative areas. Wounds were dressed wit h Xeroform, 4x4, sterile Webril, and then an Ryan wrap was applied. Tourniquet was deflated. She was taken to the recovery room in stable condition. The finger was dressed with 1-inch Jazmin and Allyssa. [id number]/[facility] #: [id number]
== END 2019-04-03 12:50 | disposition home or self-care (01) ==
LOC: OR 07:01
PROVIDERS: ATTEND Orthopaedic Surgery Hand Surgery
DX: G56.01 Carpal tunnel syndrome, right upper limb (principal); G56.21 Lesion of ulnar nerve, right upper limb; M67.441 Ganglion, right hand; F41.9 Anxiety disorder, unspecified; Z87.891 Personal history of nicotine dependence; Z85.828 Personal history of other malignant neoplasm of skin
CPT/HCPCS: 81025; 88304; A9270-GY; J0690; J1100; J1885; J2250; J2405; J2704; J3010; J3490